=== PATIENT | male | born 2000 | race African-American/Black ===

== ENCOUNTER 2023-10-05 04:00 | Emergency (ER) | payer OTHER ==
[~2023-10-05] VITALS: Ht 172.7 cm; Wt 105.0 kg
[2023-10-05 08:17] LABS: BASO % 0.6 % (0.0-1.0); EOS # 0.2 10^3/uL (0.0-0.5); EOS % 2.5 % (0.0-3.0); HEMATOCRIT 41.7 % (42.0-52.0); HEMOGLOBIN 14.1 g/dl (13.5-17.5); LYMPH # 1.6 10^3/uL (1.5-5.0); LYMPH % 25.6 % (24.0-44.0); MEAN CORPUSCULAR HEMOGLOBIN 27.1 pg (27.0-33.0); MEAN CORPUSCULAR HGB CONC 33.8 g/dl (32.0-36.5); MEAN CORPUSCULAR VOLUME 80.2 fl (80.0-96.0); MONO # 0.7 10^3/uL (0.0-0.8); MONO % 10.3 % (2.0-8.0); NEUTROPHILS # 3.9 10^3/uL (1.5-8.5); NEUTROPHILS % 60.7 % (36.0-66.0); PLATELET COUNT, AUTOMATED 349 10^3/uL (150-450); WHITE BLOOD COUNT 6.4 10^3/uL (4.0-10.0)
[2023-10-05 08:41] LABS: LIPASE 30 U/L (12-53)
[2023-10-05 08:44] LABS: ALBUMIN 3.9 G/DL (3.2-5.2); ALKALINE PHOSPHATASE 153 U/L (46-116); ALT/SGPT 26 U/L (7.0-40); AST/SGOT 22 U/L (<34); BILIRUBIN,DIRECT 0.2 MG/DL (<0.4); BILIRUBIN,TOTAL 0.6 MG/DL (0.3-1.2); BLOOD UREA NITROGEN 15 MG/DL (9-23); CALCIUM LEVEL 9.1 MG/DL (8.5-10.1); CARBON DIOXIDE LEVEL 24 MMOL/L (20-31); CHLORIDE LEVEL 103 MMOL/L (98-107); CREATININE FOR GFR 1.06 MG/DL (0.70-1.30); GLOMERULAR FILTRATION RATE > 60.0 (>60); GLUCOSE, FASTING 94 MG/DL (60-100); POTASSIUM SERUM 3.9 MMOL/L (3.5-5.1); SODIUM LEVEL 137 MMOL/L (136-145); TOTAL PROTEIN 7.1 G/DL (5.7-8.2)
[2023-10-05] MEDS ORDERED: PROC1CRE5 PR (08:52)
[2023-10-05] MEDS ORDERED: COLA100C5 PO (08:54)
[2023-10-05 09:08] VITALS: BP 128/66; TEMP 96.9; O2SAT 97
== END 2023-10-05 09:13 | disposition home or self-care (01) ==
LOC: M ED 04:00
DX: K60.2 Anal fissure, unspecified (principal)

== ENCOUNTER → 2024-02-14 | Outpatient (CLI) | payer OTHER ==
[~2024-02-14] MED LIST: COLA100C5 PO; PROC1CRE5 PR
[2024-02-14 14:01] LABS: PLATELET COUNT, AUTOMATED 317 10^3/uL (150-450)
[2024-02-14 14:11] LABS: INR 0.99; PARTIAL THROMBOPLASTIN TIME 28.9 SECONDS (24.8-34.2); PROTHROMBIN TIME 12.8 SECONDS (12.5-14.5)
[2024-02-14 14:21] LABS: COLLAGEN EPINEPHRINE 121 SECONDS (74-162)
== END ==
LOC: M LAB 13:30
PROVIDERS: ATTEND Physician Assistant
DX: Z01.818 Encounter for other preprocedural examination (principal)

== ENCOUNTER 2024-09-06 08:40 | Emergency (ER) | payer OTHER ==
[~2024-09-06] VITALS: Ht 172.7 cm; Wt 114.3 kg
[2024-09-06 08:44] VITALS: BP 138/69; TEMP 98.6; O2SAT 97
[2024-09-06] MEDS: IBUPROFEN 600MG TAB PO ONE (09:30)
[2024-09-06] MEDS ORDERED: AMOX875T PO (09:47)
== END 2024-09-06 09:55 | disposition home or self-care (01) ==
LOC: M ED 08:40
DX: H66.93 Otitis media, unspecified, bilateral (principal); J02.9 Acute pharyngitis, unspecified; F17.290 Nicotine dependence, other tobacco product, uncomplicated; Z79.2 Long term (current) use of antibiotics

== ENCOUNTER → 2024-10-16 | Outpatient (CLI) | payer OTHER ==
[~2024-10-16] MED LIST changes: +AMOX875T PO
[2024-10-16 11:24] LABS: PLATELET COUNT, AUTOMATED 332 10^3/uL (150-450)
[2024-10-16 12:03] LABS: COLLAGEN EPINEPHRINE 110 SECONDS (74-162)
[2024-10-16 12:14] LABS: INR 0.95; PARTIAL THROMBOPLASTIN TIME 31.7 SECONDS (24.8-34.2); PROTHROMBIN TIME 12.9 SECONDS (12.5-14.5)
== END ==
LOC: M LAB 10:44
PROVIDERS: ATTEND Physician Assistant
DX: Z01.818 Encounter for other preprocedural examination (principal)